=== PATIENT | female | born 2000 | race African-American/Black ===

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

== ENCOUNTER 2020-10-14 22:07 | Emergency (ER) | payer MEDICAID ==
[~2020-10-14] VITALS: Ht 154.9 cm; Wt 58.4 kg
[2020-10-14 22:38] VITALS: BP 98/60
== END 2020-10-15 01:24 | disposition home or self-care (01) ==
LOC: ER 22:07
DX: M79.643 Pain in unspecified hand (principal); Z53.21 Procedure and treatment not carried out due to patient leaving prior to being seen by health care provider

== ENCOUNTER 2020-10-15 07:51 | Emergency (ER) | payer MEDICAID ==
[~2020-10-15] VITALS: Ht 165.1 cm; Wt 68.0 kg
[2020-10-15] MEDS ORDERED: LIDOCAINE HCL/PF 1% 10 MG/ML 5ML VIAL IJ ONE (08:30)
[2020-10-15] MEDS ORDERED: TETANUS, DIPHTHERIA, PERTUSSIS VAC/PF 0.5ML (>7YR OLD) IM ONE (08:30)
[2020-10-15] MEDS ORDERED: BACITRACIN ZINC OINT UDPKT TOP ONE (08:30)
[2020-10-15] MEDS ORDERED: IBUPROFEN 600MG TABLET PO ONE (08:30)
[2020-10-15 09:13] VITALS: BP 105/58
== END 2020-10-15 09:17 | disposition home or self-care (01) ==
LOC: ER 07:51
DX: S61.412A Laceration without foreign body of left hand, initial encounter (principal); F12.10 Cannabis abuse, uncomplicated; W26.0XXA Contact with knife, initial encounter; Y93.89 Activity, other specified; Y92.89 Other specified places as the place of occurrence of the external cause; Y99.8 Other external cause status
CPT/HCPCS: 12002; 90471; 90715; 99283; J3490; Z7610

== ENCOUNTER 2022-08-17 10:31 | Emergency (ER) | payer MEDICAID ==
[~2022-08-17] VITALS: Ht 152.4 cm; Wt 59.0 kg
[2022-08-17 21:00] VITALS: BP 106/59
[2022-08-17] MEDS ORDERED: CEPH500C2 MT (21:03)
[2022-08-17] MEDS ORDERED: IBUP-2028 MT (21:03)
== END 2022-08-17 21:00 | disposition home or self-care (01) ==
LOC: ER 10:31
DX: L05.91 Pilonidal cyst without abscess (principal)
CPT/HCPCS: 81025; 99283

== ENCOUNTER 2023-01-02 16:46 | Emergency (ER) | payer MEDICAID ==
[~2023-01-02] VITALS: Ht 167.6 cm; Wt 65.0 kg
[~2023-01-02 16:46] MED LIST: CEPH500C2 MT; IBUP-2028 MT
[2023-01-02] MEDS ORDERED: CHLORDIAZEPOXIDE 25MG CAPSULE PO ONE (22:00)
[2023-01-02] MEDS ORDERED: ONDANSETRON 4MG ODT PO ONE (22:00)
[2023-01-02 23:35] VITALS: BP 110/78
== END 2023-01-02 23:36 | disposition home or self-care (01) ==
LOC: ER 16:46
DX: F19.10 Other psychoactive substance abuse, uncomplicated (principal)
CPT/HCPCS: 99283; Q0162

== ENCOUNTER 2023-09-08 15:02 | Emergency (ER) | payer OTHER ==
[~2023-09-08] VITALS: Ht 152.4 cm; Wt 58.1 kg
[~2023-09-08 15:02] MED LIST changes: +LIDO700A15 TP; +NAPR-1176 MT
[2023-09-08 15:09] VITALS: BP 114/42; O2SAT 100
[2023-09-08 16:06] LABS: BASOPHILS % 0.8 % (0.0-2.0); EOSINOPHILS % 3.3 % (0.0-5.0); HEMATOCRIT. 41.6 % (36.0-48.0); HEMOGLOBIN. 13.5 g/dL (12.0-16.0); LYMPHOCYTES % 23.3 % (20.0-50.0); MEAN CORPUSCULAR HEMOGLOBIN 30.3 pg (28.0-32.0); MEAN CORPUSCULAR HGB CONC 32.4 g/dL (31.0-37.0); MEAN CORPUSCULAR VOLUME 93.6 fL (81.0-99.0); MEAN PLATELET VOLUME 10.5 fl (7.4-10.4); MONOCYTES % 4.2 % (2.0-8.0); NEUTROPHILS % 68.4 % (40.0-76.0); PLATELET 280 x1000/uL (130-400); RED BLOOD CELL COUNT 4.44 mill/uL (4.2-5.4); RED CELL DISTRIBUTION WIDTH 13.1 % (11.6-14.6); WHITE BLOOD COUNT 9.7 x1000/uL (4.5-11.0)
[2023-09-08 16:18] LABS: ALANINE AMINOTRANSFERASE 10 IU/L (10-49); ALBUMIN 5.1 g/dL (3.2-4.8); ASPARTATE AMINOTRANSFERASE 16 IU/L (<34); BILIRUBIN TOTAL 0.6 mg/dL (0.1-1.0); CALCIUM 10.1 mg/dL (8.7-10.4); CARBON DIOXIDE 23 mEq/L (21-32); CHLORIDE 106 mEq/L (98-107); CREATININE 0.6 mg/dL (0.6-1.0); GLUCOSE 87 mg/dL (70-105); POTASSIUM 4.1 mEq/L (3.5-5.1); PROTEIN TOTAL 8.2 g/dL (6.0-8.3); SODIUM 141 mEq/L (136-145); UREA NITROGEN BLOOD 7 mg/dL (9-23)
[2023-09-08 16:20] LABS: ETHANOL BLOOD < 10 mg/dL (<10)
[2023-09-08 16:27] LABS: HCG SCREEN NEGATIVE
[2023-09-08] MEDS ORDERED: ONDA4TAB11 PO (17:42)
[2023-09-08] MEDS ORDERED: MAG355OR21 MT (17:42)
[2023-09-08] MEDS ORDERED: MAGNESIUM/ALUMINUM HYDROXIDE/SIMETHICONE 30ML UDC PO ONE (17:45)
[2023-09-08] MEDS ORDERED: ONDANSETRON 4MG ODT PO ONE (17:45)
[2023-09-08 18:24] VITALS: PULSE 65; RESP 16; TEMP 98.4
== END 2023-09-08 18:25 | disposition home or self-care (01) ==
LOC: ER 15:02
DX: R11.10 Vomiting, unspecified (principal); R19.7 Diarrhea, unspecified; F14.10 Cocaine abuse, uncomplicated; F15.10 Other stimulant abuse, uncomplicated
CPT/HCPCS: 80053; 80320; 84703; 83690; 85025; 36415; 99283; Q0162; G0480